=== PATIENT | female | born 1925 | race Caucasian/White ===

== ENCOUNTER 2017-06-25 17:14 | Emergency (ER) | payer SELFPAY ==
[~2017-06-25] VITALS: Wt 33.0 kg
[2017-06-25] MEDS ORDERED: HYDROCODONE/APAP (5/325) TAB PO ONE (20:30)
[2017-06-25] MEDS ORDERED: IBUPROFEN 200 MG TAB PO ONE (20:30)
--- NOTE | 2017-06-25 21:05 | RADRPT ---
PROCEDURE: XR Hip. CLINICAL INDICATION: Intermittent right hip pain since surgery 4 months ago TECHNIQUE: AP and frog lateral views of the right hip were performed. COMPARISON: None. 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 No fracture or osseous lesion is identified. Demineralization cannot exclu de osteopenia or osteoporosis. The visualized pelvis is unremarkable. Degenerative spondylosis of the included portion of the lumbar spine is noted. 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 . RPTAT:HJJR IMPRESSION: 1. 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 2. Diffuse demineralization likely osteopenia or osteoporosis. 3. Degenerative disk disease and spondylosis of the visualized lower lumbar spine. Physician Yuli Date Time Electronically viewed and signed by Physician Yuli on 06/25/2017 21:04 /
[2017-06-25] MEDS ORDERED: NAPR-685 PO (22:18)
[2017-06-25] MEDS ORDERED: HYDR-906 PO (22:18)
[2017-06-25 22:26] VITALS: BP 132/65; PULSE 82; RESP 20; TEMP 98.8
--- NOTE | 2017-06-25 22:30 | ERD ---
ER Documentation Chief Complaint Date/Time DATE: 06/25/17 TIME: 22:22 Chief Complaint r. hip pain hx hip sx 4 mo ago HPI 89-year-old female is brought in by her son for having intermittent right hip pain for 4 months and she [place]. She has been ambulatory and has not taken anything for the pain. She has no other issues currently. She has suffered no falls or recent trauma since the surgery.. ROS All systems reviewed and are negative except as per history of present illness. Medications Home Meds Active Scripts Hydrocodone/Acetaminophen (Nicasio 5-325 Tablet) 1 Each Tablet, 1 EACH PO Q6 for SEVERE PAIN LEVEL 7-10, #14 TAB Prov:HI JACK DO 06/25/17 Naproxen* (Naproxen*) 375 Mg Tablet, 375 MG PO BID Y for PAIN LEVEL 1-5, #20 TAB Prov:HI JACK DO 06/25/17 Physical Exam Vitals Vital Signs Date Time Temp Pulse Resp B/P Pulse Ox O2 Delivery O2 Flow Rate FiO2 06/25/17 17:32 98.8 58 20 137/61 98 Physical Exam Const: [] No distress Resp: Clear to auscultation bilaterally Cardio: Regular rate and rhythm, no murmurs Abd: Soft, non tender, non distended. Normal bowel sounds Skin: No petechiae or rashes Back: No midline or flank tenderness Ext: No cyanosis, or edema, No tenderness to the trochanteric area of the hip and no deformities, patient able to stand. Distal pulses intact, No strength deficit Neur: Awake and alert Results 24 hrs Current Medications Medications (Trade) Dose Ordered Sig/Fortunato Route PRN Reason Start Time Stop Time Status Last Admin Dose Admin Acetaminophen/ Hydrocodone Bitart (Nicasio (5/325)) 1 tab ONCE ONCE PO 06/25/17 20:30 06/25/17 20:31 DC 06/25/17 20:42 Ibuprofen (Motrin) 400 mg ONCE ONCE PO 06/25/17 20:30 06/25/17 20:31 DC 06/25/17 20:42 Procedures/MDM Lingering intermittent hip pain status [place]. Patient has a x-ray showing only osteoporosis with no concerning acute process. She was given Nicasio and ibuprofen in the ER which led to resolution of her pain. She is fully ambulatory. Hip x-ray interpretation, right hip: No acute process. Surgery hardware in place, no foreign bodies. Discharging with primary care and orthopedic follow-up. Return precautions given. Discharging with naproxen and Nicasio. Departure Diagnosis: Primary Impression: Hip pain Condition: Stable Patient Instructions: How Your Hip Works Referrals: LENA SALCEDO [facility] YOU HAVE RECEIVED A MEDICAL SCREENING EXAM AND THE RESULTS INDICATE THAT YOU DO NOT HAVE A CONDITION THAT REQUIRES URGENT TREATMENT IN THE EMERGENCY DEPARTMENT. FURTHER EVALUATION AND TREATMENT OF YOUR CONDITION CAN WAIT UNTIL YOU ARE SEEN IN YOUR DOCTORS OFFICE WITHIN THE NEXT 1-2 DAYS. IT IS YOUR RESPONSIBILITY TO MAKE AN APPOINTMENT FOR [facility]. IF YOU HAVE A PRIMARY DOCTOR --you should call your primary doctor and schedule an appointment IF YOU DO NOT HAVE A PRIMARY DOCTOR YOU CAN CALL OUR PHYSICIAN REFERRAL HOTLINE AT IF YOU CAN NOT AFFORD TO SEE A PHYSICIAN YOU CAN CHOSE FROM THE FOLLOWING [facility] [address]. [facility] [address] [address] [facility] [facility] [address] [facility]. [facility] [address] [facility]. [facility]. [address] Additional Instructions: Call your primary care doctor TOMORROW for an appointment during the next 2-3 days.See the doctor sooner or return here if your condition worsens before your appointment time.HI Foster DO Jun 25, 2017 22:30
== END 2017-06-25 22:53 | disposition home or self-care (01) ==
LOC: E/R 17:14
DX: G89.18 Other acute postprocedural pain (principal); M25.551 Pain in right hip; Z96.641 Presence of right artificial hip joint
CPT/HCPCS: 73510